=== PATIENT | female | born 1965 | race Caucasian/White ===

== ENCOUNTER → 2018-05-26 14:17 | Outpatient (CLI) | payer BC, SELFPAY ==
--- NOTE | 2018-05-26 14:32 | CT_ITS ---
STUDY: CT ABDOMEN AND PELVIS WITH AND WITHOUT CONTRAST REASON FOR EXAM: Female, 53 years old. Hematuria RADIATION DOSAGE (If Supplied By Facility): CTDIvol = ( 16.94 ) mGy, DLP = ( 1755.07 ) mGycm TECHNIQUE: Transaxial images were obtained from the dome of the diaphragm to the symphysis pubis without oral contrast. Isovue 300 100mL IV was administered. Sagittal and coronal images were reconstructed. Individualized dose optimization techniques were used for this CT. COMPARISON: None. FINDINGS: There is air trapping in the lung bases minimal emphysematous change. The visualized portions of the heart are within normal limits. There is decreased attenuation of the liver consistent with steatosis. There are surgical clips in the gallbladder fossa consistent with a prior cholecystectomy. Normal spleen. Normal pancreas. Normal bilateral adrenal glands. Normal right kidney. There is a 4.2 x 4.6 cm left renal cyst. Normal visualized stomach. Normal small intestine. There is mild to moderate stool in the colon. Allowing for peristalsis within the sigmoid colon there is a decompressed mildly thick-walled appearance of the colon. The appendix is visualized and appears normal. There is diffuse atherosclerotic calcification of the abdominal aorta, without a demonstrated aneurysm. Normal inferior vena cava. Normal retroperitoneum. Normal urinary bladder. Normal visualized uterus. There is a small umbilical hernia containing fat. There are diffuse degenerative changes of the visualized lumbar spine. CT/CT Abd/Pelvis W/WO Contrast IMPRESSION: Benign appearing left renal cyst measuring 4.2 x 4.6 cm with Hounsfield units in the range of simple fluid could consider follow-up ultrasound. No evidence of renal ureteral or bladder calculi. Allowing for peristalsis and decompression there is a mildly thick-walled appearance of the sigmoid. This may represent possible colitis or history of colitis however recommend follow-up colonoscopy when appropriate to exclude atypia. Hepatic steatosis. Status post cholecystectomy. Electronically Signed: Krupa Zapien MD at 15:49 EDT Tel , Service support ,
== END ==
LOC: CT 14:29
PROVIDERS: Referring Provider Nurse Practitioner Adult Health; Visit Provider Nurse Practitioner Adult Health
DX: R31.0 Gross hematuria (principal)
CPT/HCPCS: 74178; Q9967

== ENCOUNTER → 2018-08-22 12:51 | Outpatient (CLI) | payer BC, SELFPAY | LOC: LAB.FUTURE 12:54 | PROVIDERS: Family Provider Nurse Practitioner Family; PCP Nurse Practitioner Family; Referring Provider Urology; Visit Provider Urology | DX: R30.0 Dysuria (principal) | CPT/HCPCS: 87086; 87088 ==